=== PATIENT | female | born 1995 | race Caucasian/White ===

== ENCOUNTER 2018-07-22 11:19 | Emergency (ER) | payer OTHER ==
[2018-07-22 11:55] VITALS: BP 111/70; PULSE 80; TEMP 99.2; BMI 28.3
--- NOTE | 2018-07-22 14:16 | PDOC ---
History of Present Illness - General Chief Complaint: Cold Symptoms Stated Complaint: FLU COUGH Time Seen by Provider: 07/22/18 13:52 - History of Present Illness Initial Comments: 07/22/18 14:13 23-year-old female without comorbidities presents for evaluation of cough and intermittent fever 5 days. She also has a lesion on her left third finger she is concerned about Past History - Past Medical History Allergies/Adverse Reactions: Allergies Allergy/AdvReac Type Severity Reaction Status Date / Time No Known Allergies Allergy Verified 07/22/18 11:55 Home Medications: Ambulatory Orders NK [No Known Home Medication] 07/22/18 COPD: No - Surgical History Cholecystectomy: Yes - Suicide/Smoking/Psychosocial Hx Smoking History: Never smoked Review of Systems - Review of Systems Constitutional: Yes: Fever, Malaise Respiratory: Yes: Cough Integumentary: Yes: Lesions *Physical Exam - Vital Signs Last Vital Signs Temp Pulse Resp BP Pulse Ox 99.2 F 80 18 111/70 100 07/22/18 11:53 07/22/18 11:53 07/22/18 11:53 07/22/18 11:53 07/22/18 11:53 - Physical Exam Comments: 07/22/18 14:13 HEAD: NC/AT EYES: Conjuntiva clear Ears: Canals and TM's normal NOSE: No d/c THROAT: Moist mucous membrances, oral pharanx clear, uvula midline NECK: Supple without adenopathy CARDIAC: S1 S2 LUNGS: CTA Full and Equal breath sounds ABDOMEN: Soft NT ND MS: Full ROM in all joints without edema NEUROLOGIC: No gross sensory or motor deficits, NVID SKIN: Normal color and temperature there is a fascicular area on the radial aspect of the left middle finger on the skin overlying the proximal phalanx vesicles are closed there is no indication of secondary infection Medical Decision Making - Medical Decision Making 07/22/18 14:14 Upper respiratory infection with herpetic obed *DC/Admit/Observation/Transfer Diagnosis at time of Disposition: URI (upper respiratory infection), Herpetic obed - Discharge Dispostion Disposition: HOME Condition at time of disposition: Stable Decision to Admit order: No - Referrals Referrals: Davy Kaur [Non Staff, Medical] - - Patient Instructions Printed Discharge Instructions: DI for Viral Upper Respiratory Infection-Child Additional Instructions: Please follow-up with your primary care physician in one to 2 days for further evaluation and treatment options. Upper respiratory infection will resolve on its own should symptoms worsen or go unresolved please follow-up with your primary care doctor or the emergency room if needed the herpetic obed rash on your finger will resolve on its own as well over the next few weeks please keep in mind vesicles or contagious when their opened and the rash can spread to other people. It's important to keep the rash covered should the vesicles open he may use hot and cold compresses as tolerated for symptomatically relief - Post Discharge Activity
== END 2018-07-22 14:18 | disposition home or self-care (01) ==
LOC: JERFT 11:19
DX: J06.9 Acute upper respiratory infection, unspecified (principal); B00.89 Other herpesviral infection
CPT/HCPCS: 99281-25

== ENCOUNTER 2018-11-27 17:12 | Emergency (ER) | payer OTHER ==
[2018-11-27 17:44] VITALS: BP 117/71; PULSE 83; TEMP 98.1; BMI 28.6
--- NOTE | 2018-11-27 18:33 | PDOC ---
History of Present Illness - General Chief Complaint: Weakness Stated Complaint: PERSONAL Time Seen by Provider: 11/27/18 18:11 History Source: Patient Exam Limitations: No Limitations Past History - Past Medical History Allergies/Adverse Reactions: Allergies Allergy/AdvReac Type Severity Reaction Status Date / Time No Known Allergies Allergy Verified 11/27/18 17:40 Home Medications: Ambulatory Orders NK [No Known Home Medication] 11/27/18 COPD: No - Surgical History Cholecystectomy: Yes - Immunization History Immunization Up to Date: Yes - Suicide/Smoking/Psychosocial Hx Smoking History: Never smoked Hx Alcohol Use: No Drug/Substance Use Hx: No *Physical Exam - Vital Signs Last Vital Signs Temp Pulse Resp BP Pulse Ox 98.1 F 83 16 117/71 100 11/27/18 17:40 11/27/18 17:40 11/27/18 17:40 11/27/18 17:40 11/27/18 17:40 - Physical Exam General Appearance: No: Apparent Distress Respiratory/Chest: positive: Lungs Clear, Normal Breath Sounds. negative: Respiratory Distress Cardiovascular: positive: Regular Rhythm, Regular Rate, S1, S2. negative: Murmur Gastrointestinal/Abdominal: positive: Normal Bowel Sounds, Soft. negative: Tender, Distended, Guarding, Rebound Integumentary: positive: Normal Color Neurologic: positive: leather stitcher II-XII NML intact, Fully Oriented, Alert, Normal Mood/ Affect, Motor Strength 5/5 ED Treatment Course - LABORATORY CBC & Chemistry Diagram: 11/27/18 18:27 11/27/18 18:29 Medical Decision Making - Medical Decision Making 23 y/o F hx of anemia presents with intermittent lightheadedness for the past 2 months. States is concerned this is related to her anemia as she felt similarly in the past and was found to be anemic. States she used to take Iron, but stopped taking as her anemia resolved. Has not had a checkup with a PCP for around a year and does not have a PCP currently. States she has heavy menstrual cycles, but is not having one currently. Denies active bleeding right now. Denies fever, sob, cp, abd pain, n/v, syncope. Assess anemia Plan: Labs 11/27/18 18:29 Labs unremarkable Will refer to PCP for follow-up Patient otherwise appears well; stable for dc 11/27/18 19:48 *DC/Admit/Observation/Transfer Diagnosis at time of Disposition: Lightheadedness - Discharge Dispostion Disposition: HOME Condition at time of disposition: Stable Decision to Admit order: No - Referrals Referrals: Aung Weir MD [Staff Physician] - 2 Days - Patient Instructions Additional Instructions: Thank you for choosing [facility]. It was a pleasure taking care of you. Your blood work was unremarkable You were referred to a primary care doctor for further evaluation of your symptoms Return to the Emergency Department if your symptoms worsen or persist or have other concerning symptoms. - Post Discharge Activity
[2018-11-27 19:21] LABS: BASO % 0.3 % (0-2.0); EOS % 2.7 % (0-4.5); HEMATOCRIT 39.6 % (32.4-45.2); HEMOGLOBIN 13.2 GM/dL (10.7-15.3); LYMPH % 35.7 % (8-40); MCH 27.6 pg (25.7-33.7); MCHC 33.4 g/dl (32.0-36.0); MEAN CELL VOLUME 82.6 fl (80-96); MEAN PLT VOLUME 9.6 fl (7.5-11.1); MONO % 9.7 % (3.8-10.2); NEUT % 51.6 % (42.8-82.8); PLATELET COUNT 236 K/MM3 (134-434); RDW 13.9 % (11.6-15.6)
[2018-11-27 19:39] LABS: ANION GAP 7 MMOL/L (8-16); BLOOD UREA NITROGEN 15 mg/dL (7-18); CALCIUM 8.3 mg/dL (8.5-10.1); CHLORIDE 107 mmol/L (98-107); CO2 25 mmol/L (21-32); CREATININE 0.7 mg/dL (0.55-1.3); GLUCOSE,RANDOM 79 mg/dL (74-106); POTASSIUM 4.3 mmol/L (3.5-5.1); SODIUM 139 mmol/L (136-145)
== END 2018-11-27 20:12 | disposition home or self-care (01) ==
LOC: JER 17:12 → JERFT 17:12
DX: R42 Dizziness and giddiness (principal)
CPT/HCPCS: 36415; 80048; 85025; 99281-25

== ENCOUNTER 2018-12-03 23:08 | Emergency (ER) | payer OTHER ==
[2018-12-03 23:17] VITALS: TEMP 98.9; BMI 28.1
[2018-12-04] MEDS ORDERED: AZITHROMYCIN 500 MG TABLET PO ONE (00:09)
[2018-12-04] MEDS ORDERED: AZITHROMYCIN 250 MG TABLET ONE (00:27)
--- NOTE | 2018-12-04 01:45 | PDOC ---
History of Present Illness - General Chief Complaint: Vaginal Sxs Stated Complaint: STD TESTING Time Seen by Provider: 12/03/18 23:36 History Source: Patient Exam Limitations: No Limitations Past History - Past Medical History Allergies/Adverse Reactions: Allergies Allergy/AdvReac Type Severity Reaction Status Date / Time No Known Allergies Allergy Verified 12/03/18 23:17 Home Medications: Ambulatory Orders NK [No Known Home Medication] 11/27/18 COPD: No - Surgical History Cholecystectomy: Yes - Immunization History Immunization Up to Date: Yes - Suicide/Smoking/Psychosocial Hx Smoking History: Never smoked Have you smoked in the past 12 months: No Information on smoking cessation initiated: No Hx Alcohol Use: No Drug/Substance Use Hx: No *Physical Exam - Vital Signs Last Vital Signs Temp Pulse Resp BP Pulse Ox 98.9 F 67 16 115/67 100 12/03/18 23:15 12/03/18 23:15 12/03/18 23:15 12/03/18 23:15 12/03/18 23:15 - Physical Exam General Appearance: No: Apparent Distress Respiratory/Chest: positive: Lungs Clear, Normal Breath Sounds. negative: Respiratory Distress Cardiovascular: positive: Regular Rhythm, Regular Rate, S1, S2. negative: Murmur Gastrointestinal/Abdominal: positive: Normal Bowel Sounds, Soft. negative: Tender, Distended, Guarding, Rebound Neurologic: positive: Alert, Normal Mood/Affect ED Treatment Course - ADDITIONAL ORDERS Additional order review: Laboratory Results 12/04/18 01:00 Urine HCG, Qual Negative - Medications Given in the ED: ED Medications Discontinued Medications Generic Name Dose Route Start Last Admin Trade Name Freq PRN Reason Stop Dose Admin Azithromycin 1,000 mg 12/04/18 00:09 12/04/18 00:30 Zithromax PO 12/04/18 00:10 1,000 mg ONCE ONE Administration Medical Decision Making - Medical Decision Making 23 y/o F hx of anemia presents requesting treatment for chlamydia. Patient's partner was seen in ED last week and had STD workup which came back positive for chlamydia. Partner was already treated, but states they had intercourse yesterday. Denies fever, abd pain, n/v, vaginal discharge/itching, urinary complaints. Does not want to be treated for gonorrhea at this time; only wants chlamydia treatment Plan: Given Azithromycin UCG negative GC culture sent 04/10/19 01:40 *DC/Admit/Observation/Transfer Diagnosis at time of Disposition: STD exposure - Discharge Dispostion Disposition: HOME Decision to Admit order: No - Referrals - Patient Instructions Additional Instructions: Thank you for choosing [facility]. It was a pleasure taking care of you. You were treated for possible exposure to chlamydia You also had labs sent for gonorrhea, which are pending and will be notified of results Refrain from sexual intercourse for 1 week. Return to the Emergency Department if your symptoms worsen or persist or have other concerning symptoms. - Post Discharge Activity
[2018-12-04 01:58] VITALS: BP 118/62; PULSE 68
== END 2018-12-04 01:58 | disposition home or self-care (01) ==
LOC: JER 23:08
DX: Z20.2 Contact with and (suspected) exposure to infections with a predominantly sexual mode of transmission (principal)
CPT/HCPCS: 36415; 84703; 87491; 87591; 99281-25

== ENCOUNTER 2019-02-01 18:06 | Emergency (ER) | payer OTHER | END 2019-02-01 20:57 | disposition home or self-care (01) | LOC: JER 18:06 ==

== ENCOUNTER 2019-02-05 00:54 | Emergency (ER) | payer OTHER ==
--- NOTE | 2019-02-05 02:05 | PDOC ---
History of Present Illness - General Chief Complaint: Pain, Acute Stated Complaint: LOWER ABDOMINAL PAIN Time Seen by Provider: 02/05/19 01:43 - History of Present Illness Initial Comments: 02/05/19 02:04 The patient is a 23 year old female with a PMH of recent liposuction and breast augmentation who presents to the ED c/o vaginal discharge. No fever/chills, Past History - Past Medical History Allergies/Adverse Reactions: Allergies Allergy/AdvReac Type Severity Reaction Status Date / Time No Known Allergies Allergy Verified 02/05/19 02:03 Home Medications: Ambulatory Orders NK [No Known Home Medication] 11/27/18 COPD: No - Surgical History Cholecystectomy: Yes - Immunization History Immunization Up to Date: Yes - Suicide/Smoking/Psychosocial Hx Smoking History: Current every day smoker Have you smoked in the past 12 months: Yes Information on smoking cessation initiated: No Hx Alcohol Use: Yes (Social) Drug/Substance Use Hx: No Review of Systems - Review of Systems Constitutional: No: Chills, Fever Respiratory: No: Cough, Shortness of Breath Cardiac (ROS): No: Chest Pain, Lightheadedness, Palpitations, Syncope ABD/GI: No: Constipated, Diarrhea, Nausea, Vomiting : Yes: Discharge. No: Burning, Dysuria *Physical Exam - Vital Signs Last Vital Signs Temp Pulse Resp BP Pulse Ox 98.3 F 81 16 108/63 99 02/05/19 00:54 02/05/19 00:54 02/05/19 00:54 02/05/19 00:54 02/05/19 00:54 - Physical Exam General Appearance: Yes: Nourished, Appropriately Dressed HEENT: positive: Normal Voice, Hearing Grossly Normal Neck: positive: Trachea midline, Supple Respiratory/Chest: positive: Lungs Clear, Normal Breath Sounds Cardiovascular: positive: S1, S2 Vascular Pulses: Dorsalis-Pedis (R): 2+, Doralis-Pedis (L): 2+ Female Pelvic Exam: positive: cervical os closed, discharge. negative: vaginal bleeding *DC/Admit/Observation/Transfer Diagnosis at time of Disposition: Vaginal discharge - Discharge Dispostion Condition at time of disposition: Fair - Referrals Schedule a call back: culture results - Patient Instructions Printed Discharge Instructions: DI for Vaginal Discharge Additional Instructions: Both urine and vaginal cultures have been sent. If there is a necessary change in your treatment plan you will be contacted. Otherwise follow-up with your OB/ PRACTICE MANAGEMENT CONSULTANT - Post Discharge Activity
[2019-02-05] MEDS ORDERED: FLUCONAZOLE 100 MG TABLET (UD) PO ONE (02:06)
[2019-02-05] MEDS ORDERED: AZITHROMYCIN 500 MG TABLET PO ONE (02:06)
[2019-02-05] MEDS ORDERED: AZITHROMYCIN 250 MG TABLET ONE (02:21)
[2019-02-05] MEDS ORDERED: FLUCONAZOLE 100 MG TABLET (UD) ONE (02:21)
[2019-02-05 02:35] VITALS: BMI 31.9
--- NOTE | 2019-02-05 02:36 | PDOC ---
Documentation entered by Barbara Park SCRIBE, acting as scribe for Lety Bowles DO. Lety Bowles DO: This documentation has been prepared by the Xavier campos Adrianna, SCRIBE, under my direction and personally reviewed by me in its entirety. I confirm that the documentation accurately reflects all work, treatment, procedures, and medical decision making performed by me. Attending Attestation - Resident Resident Name: MilliAlyssa - ED Attending Attestation I have performed the following: I have examined & evaluated the patient, The case was reviewed & discussed with the resident, I agree w/resident's findings & plan - HPI HPI: The patient is a 23 year old female, with a significant PMH of recent breast augmentation and liposuction (3 weeks ago in the [place]), who presents to the emergency department today complaining of vaginal discharge for one day. Patient endorses thick, vaginal discharge that she describes as cottage cheese. She reports associated itching, which developed after having intercourse with her boyfriend (who is also in the ED for similar symptoms). The patient denies chest pain, shortness of breath, headache and dizziness. Denies fever, chills, nausea, vomit, diarrhea and constipation. Denies dysuria, frequency, urgency and hematuria. Allergies: NKA Past surgical history: Breast augmentation and liposuction Social history: Currently sexually active with one partner 02/05/19 02:28 - Physicial Exam PE: Agree with resident exam. 02/05/19 02:28 - Medical Decision Making 02/05/19 02:35 23-year-old female with vaginal discharge here with her partner for treatment Ceftriaxone 250 mg IM as well as azithromycin 1 g by mouth and Diflucan 150 mg by mouth Patient's partner treated as well
[2019-02-05 02:50] LABS: EPI CELLS 13.2 /HPF (0-5/HPF); HCG,QUALITATIVE URINE Negative; HYALINE CASTS 16 /lpf (0-8); PH,URINE 8.5 (5.0-8.0); URINE APPEARANCE CLOUDY; URINE BILIRUBIN NEGATIVE (NEGATIVE); URINE COLOR YELLOW; URINE GLUCOSE (UA) NEGATIVE (NEGATIVE); URINE KETONE NEGATIVE (NEGATIVE); URINE LEUK ESTERASE 2+ (NEGATIVE); URINE NITRITE NEGATIVE (NEGATIVE); URINE PROTEIN 1+ (NEGATIVE); URINE RBC 2 /hpf (0-4); URINE WBC 24 /hpf (0-5)
[2019-02-05 03:23] VITALS: BP 112/74; PULSE 84; TEMP 98.6
== END 2019-02-05 03:27 | disposition home or self-care (01) ==
LOC: JER 00:54
DX: N89.8 Other specified noninflammatory disorders of vagina (principal); F17.210 Nicotine dependence, cigarettes, uncomplicated
CPT/HCPCS: 36415; 81003; 84703; 87491; 87591; 96372; 99282-25

== ENCOUNTER 2019-03-13 12:06 | Emergency (ER) | payer SELFPAY ==
[2019-03-13 12:11] VITALS: BP 121/71; PULSE 71; TEMP 98.1; BMI 31.6
[2019-03-13] MEDS ORDERED: BACITRACIN 15 GM TUBE TOPICAL OINTMENT ONE (12:35)
--- NOTE | 2019-03-13 12:37 | PDOC ---
Suture Removal/Wound Check HPI - History of Present Illness Chief Complaint: Suture/Staple Removal (other) Stated Complaint: STICHES REMOVAL Time Seen by Provider: 03/13/19 12:08 History Source: Yes: Patient Exam Limitations: Yes: No Limitations Treated at: Other ED ([facility]) Past History - Past Medical History Allergies/Adverse Reactions: Allergies Allergy/AdvReac Type Severity Reaction Status Date / Time No Known Allergies Allergy Verified 03/13/19 12:11 Home Medications: Ambulatory Orders NK [No Known Home Medication] 11/27/18 COPD: No - Surgical History Cholecystectomy: Yes - Immunization History Immunization Up to Date: Yes - Suicide/Smoking/Psychosocial Hx Smoking History: Never smoked Have you smoked in the past 12 months: Yes Information on smoking cessation initiated: No Hx Alcohol Use: No Drug/Substance Use Hx: No Suture Removal/Wound Check PE - Physical Exam Laceration/Wound Check Symptoms: reports: None. denies: Fever, Chills, Redness , Discharge, Bleeding Current Severity Level: None Location of Laceration/Wound: bilateral: Abdomen (belly button) *Review of Systems - Review of Systems Able to Perform ROS?: Yes Constitutional: No: Fever, Malaise, Weakness HEENTM: No: Symptoms Reported Respiratory: No: Symptoms reported Cardiac (ROS): No: Symptoms Reported ABD/GI: No: Symptoms Reported Musculoskeletal: Yes: Symptoms Reported, See HPI. No: Muscle Pain (suture to belly button) All Other Systems: Reviewed and Negative *Physical Exam - Vital Signs Last Vital Signs Temp Pulse Resp BP Pulse Ox 98.1 F 71 18 121/71 99 03/13/19 12:08 03/13/19 12:08 03/13/19 12:08 03/13/19 12:08 03/13/19 12:08 - Physical Exam General Appearance: Yes: Nourished, Appropriately Dressed. No: Apparent Distress HEENT: positive: Normal ENT Inspection Neck: positive: Supple Respiratory/Chest: negative: Respiratory Distress, Accessory Muscle Use Musculoskeletal: positive: Normal Inspection Extremity: positive: Normal Capillary Refill, Normal Inspection Integumentary: positive: Normal Color, Other ( single suture to umbilical. no skin erythema. no wound dehiscense. no evidence of wound infection). negative: Erythema, Swelling, Ecchymosis Neurologic: positive: Fully Oriented, Alert, Normal Response Medical Decision Making - Medical Decision Making 03/13/19 12:43 Patient with no medical history present for suture removal status post having laparoscopic liposuction [address] an umbilical left in as she thought suture will dissolve. Denies redness, pain or discharge from umbilicus. Patient has surgical procedure done in the [facility] [place] 3 months ago. Denies any other symptoms. Exam significant for 1 single suture removal umbilicus which was removed with suture removal kit without complication. Bacitracin apply to wound. No open wound or evidence of wound infection.Erythema to skin. Patient is able for discharge *DC/Admit/Observation/Transfer Diagnosis at time of Disposition: Encounter for removal of sutures - Discharge Dispostion Disposition: HOME Condition at time of disposition: Stable Decision to Admit order: No - Referrals - Patient Instructions Printed Discharge Instructions: DI for Suture Removal Additional Instructions: Keep putting bacitracin to wound twice a day as needed. Follow-up with PCP as needed - Post Discharge Activity
== END 2019-03-13 12:40 | disposition home or self-care (01) ==
LOC: JERFT 12:06
DX: Z48.817 Encounter for surgical aftercare following surgery on the skin and subcutaneous tissue (principal); Z48.02 Encounter for removal of sutures
CPT/HCPCS: 99281-25

== ENCOUNTER 2020-04-06 20:10 | Emergency (ER) | payer OTHER ==
--- NOTE | 2020-04-06 20:15 | PDOC ---
Rapid Medical Evaluation Time Seen by Provider: 04/06/20 20:12 Medical Evaluation: Allergies Allergy/AdvReac Type Severity Reaction Status Date / Time No Known Allergies Allergy Verified 03/13/19 12:11 04/06/20 20:12 I have performed a brief in-person evaluation of this patient. CC: PVB- 8weeks ; LMP- 01/21 PE: deferred Orders: labs, urine, TVUS Patient will proceed to ED for further evaluation. Discharge Disposition - Diagnosis Vaginal discharge - Referrals - Patient Instructions - Post Discharge Activity
[2020-04-06 20:18] VITALS: BP 110/63; PULSE 83; TEMP 98.9; BMI 31.6
[2020-04-06 21:22] LABS: BASO % 0.4 % (0-2.0); EOS % 1.7 % (0-4.5); HEMATOCRIT 36.2 % (32.4-45.2); HEMOGLOBIN 12.1 GM/dL (10.7-15.3); LYMPH % 33.1 % (8-40); MCH 28.2 pg (25.7-33.7); MCHC 33.5 g/dl (32.0-36.0); MEAN CELL VOLUME 84.2 fl (80-96); MEAN PLT VOLUME 8.9 fl (7.5-11.1); MONO % 8.2 % (3.8-10.2); NEUT % 56.6 % (42.8-82.8); PLATELET COUNT 219 K/MM3 (134-434); WHITE BLOOD COUNT 5.2 K/mm3 (4.0-10.0)
--- NOTE | 2020-04-06 21:48 | PDOC ---
Attending Attestation - Resident Resident Name: Edward Chu - ED Attending Attestation I have performed the following: I have examined & evaluated the patient, The case was reviewed & discussed with the resident, I agree w/resident's findings & plan - HPI HPI: 04/06/20 22:23 see resident hpi - Physicial Exam PE: 04/06/20 22:23 see resident exam - Medical Decision Making 04/06/20 22:24 25-year-old female currently with unknown gestational age complaining of clear liquid discharge Ultrasound shows a live approximate 9 to 10-week IUP with small subchorionic hemorrhage Urinalysis suggest urinary tract infection Patient does have an [employer] in [place] with whom she will follow Discharge - Discharge Information Problems reviewed: Yes Clinical Impression/Diagnosis: Vaginal discharge, UTI (urinary tract infection) Subchorionic hematoma Qualifiers: Fetus number: single or unspecified fetus Trimester: unspecified trimester Qualified Code(s): O41.8X90 - Other specified disorders of amniotic fluid and membranes, unspecified trimester, not applicable or unspecified Condition: Stable Disposition: HOME - Follow up/Referral - Patient Discharge Instructions Patient Printed Discharge Instructions: DI for -- Discomforts and Remedies - Post Discharge Activity Work/Back to School Note: Back to Work
[2020-04-06 21:53] LABS: BLOOD UREA NITROGEN 10.8 mg/dL (7-18); CALCIUM 8.8 mg/dL (8.5-10.1); CREATININE 0.6 mg/dL (0.55-1.3); POTASSIUM 4.2 mmol/L (3.5-5.1)
--- NOTE | 2020-04-06 21:54 | PDOC ---
History of Present Illness - General Chief Complaint: Vaginal Bleeding Stated Complaint: 8 WEEK PREG/VAGINAL BLEEDING Time Seen by Provider: 04/06/20 20:12 - History of Present Illness Initial Comments: 04/06/20 21:49 25 F with no PMH (?) 8 weeks presented to the ED with concern of vaginal gushing fluid. It happened acutely this afternoon around 5pm. She noticed gushing non-painful white clear fluid. She denies hematuria, increased frequency, white discharge. She endorses nausea, denies chest pain, abdominal pa in, vomiting, vaginal bleeding. Her week was unclear. Patient stated uncertain LMP, but around 01/21. Patient has an OBGYN at [facility] named, Peter Zazueta. Last visit was 2 weeks ago. Never had a proper ultrasound yet. She also endorses 2 weeks of running diarrhea, denies blood in stool. PMHX: none PSHX: liposuction, cholecystectomy Meds:none Allergies: none Tob: none Etoh: none Rec drugs: none PCP: none OBGYN: Peter Zazueta ROS GENERAL/CONSTITUTIONAL: No fever or chills. No weakness. HEAD, EYES, EARS, NOSE AND THROAT: No change in vision. No ear pain or discharge. No sore throat. CARDIOVASCULAR: No chest pain or shortness of breath RESPIRATORY: No cough, wheezing, or hemoptysis. GASTROINTESTINAL: +nausea, no vomiting, +diarrhea , no constipation. GENITOURINARY: No dysuria, frequency, or change in urination. MUSCULOSKELETAL: No joint or muscle swelling or pain. No neck or back pain. SKIN: No rash NEUROLOGIC: No headache, vertigo, loss of consciousness, or change in s trength/sensation. ENDOCRINE: No increased thirst. No abnormal weight change HEMATOLOGIC/LYMPHATIC: No anemia, easy bleeding, or history of blood clots. ALLERGIC/IMMUNOLOGIC: No hives or skin allergy. PE GENERAL: Awake, alert, and fully oriented, in no acute distress HEAD: No signs of trauma, normocephalic, atraumatic EYES: PERRLA, EOMI, sclera anicteric, conjunctiva clear ENT: Auricles normal inspection, hearing grossly normal, nares patent, oropharynx clear without exudates. Moist mucosa NECK: Normal ROM, supple, no lymphadenopathy, JVD, or masses LUNGS: No distress, speaks full sentences, clear to auscultation bilaterally HEART: Regular rate and rhythm, normal S1 and S2, no murmurs, rubs or gallops, peripheral pulses normal and equal bilaterally. ABDOMEN: Soft, nontender, normoactive bowel sounds. No guarding, no rebound. No masses EXTREMITIES : Normal inspection, Normal range of motion, no edema. No clubbing or cyanosis. NEUROLOGICAL: Cranial nerves II through XII grossly intact. Normal speech, normal gait, no focal sensorimotor deficits SKIN: Warm, Dry, normal turgor, no rashes or lesions noted Past History - Medical History Allergies/Adverse Reactions: Allergies Allergy/AdvReac Type Severity Reaction Status Date / Time No Known Allergies Allergy Verified 04/06/20 20:18 Home Medications: Ambulatory Orders Cephalexin Monohydrate [Keflex -] 500 mg PO BID 7 Days #14 capsule 04/06/20 COPD: No - Surgical History Cholecystectomy: Yes - Reproductive History Is Patient Now?: Yes - Immunization History Immunization Up to Date: Yes - Psycho-Social/Smoking History Smoking History: Never smoked Have you smoked in the past 12 months: Yes - Substance Abuse Hx (Audit-C & DAST Scrn) How often the patient has a drink containing alcohol: Never Score: In Men: 4 or > Positive; In Women: 3 or > Positive: 0 Screen Result (Pos requires Nsg. Audit-10AR): Negative In the last yr the pt used illegal drug/Rx for NonMed reason: No Score: Yes response is considered Positive: 0 Screen Result (Positive result requires Nsg. DAST-10): Negative *Physical Exam - Vital Signs Last Vital Signs Temp Pulse Resp BP Pulse Ox 98.9 F 83 18 110/63 100 04/06/20 20:14 04/06/20 20:14 04/06/20 20:14 04/06/20 20:14 04/06/20 20:14 ED Treatment Course - LABORATORY CBC & Chemistry Diagram: 04/06/20 20:50 04/06/20 20:50 - ADDITIONAL ORDERS Additional order review: 04/06/20 20:50 RBC 4.30 MCV 84.2 MCHC 33.5 RDW 13.0 MPV 8.9 Neutrophils % 56.6 Lymphocytes % 33.1 Monocytes % 8.2 Eosinophils % 1.7 Basophils % 0.4 Medical Decision Making - Medical Decision Making 04/06/20 21:54 25 F with no PMH , , uncertain 8 weeks , presented to the ED with concern of gushing clear painless fluid from vagina. Concerning for miscarriage. Ultrasound UA/UC, Bloodwork. 04/06/20 21:56 Transabdominal US revealed , single lived uterine fetus , 9 weeks 5 days. Has cardiac activities. Small subchorionic hemorrhage presented. Simple cyst of the left/right ovary. No free fluid in culdesac. Discharge - Discharge Information Problems reviewed: Yes Clinical Impression/Diagnosis: Subchorionic hematoma Qualifiers: Fetus number: single or unspecified fetus Trimester: unspecified trimester Qualified Code(s): O41.8X90 - Other specified disorders of amniotic fluid and membranes, unspecified trimester, not applicable or unspecified; O46.8X9 - Other antepartum hemorrhage, unspecified trimester UTI in Qualifiers: Trimester: unspecified trimester Qualified Code(s): O23.40 - Unspecified infection of urinary tract in , unspecified trimester Condition: Stable Disposition: HOME - Additional Discharge Information Prescriptions: Cephalexin Monohydrate [Keflex -] 500 mg PO BID 7 Days #14 capsule - Follow up/Referral - Patient Discharge Instructions Patient Printed Discharge Instructions: DI for Urinary Tract Infection (UTI), DI for -- Discomforts and Remedies Additional Instructions: Follow up with your OBGYN within 3 days regarding your ER visit. Your care is not complete until you follow up. You have a urinary tract infection. I have prescribed you an antibiotic. Take as advised on label. Return to the ER for increasing pain, chest pain, shortness of breath, vaginal bleeding, or any other new, worsening or concerning symptoms. - Post Discharge Activity Work/Back to School Note: Back to Work
--- NOTE | 2020-04-06 22:06 | PDOC ---
*Physical Exam - Vital Signs Last Vital Signs Temp Pulse Resp BP Pulse Ox 98.9 F 83 18 110/63 100 04/06/20 20:14 04/06/20 20:14 04/06/20 20:14 04/06/20 20:14 04/06/20 20:14 ED Treatment Course - LABORATORY CBC & Chemistry Diagram: 04/06/20 20:50 08 20:50 Medical Decision Making - Medical Decision Making CBC WBC 5.2 K/mm3 (4.0-10.0) 04/06/20 20:50 RBC 4.30 M/mm3 (3.60-5.2) 04/06/20 20:50 Hgb 12.1 GM/dL (10.7-15.3) 04/06/20 20:50 Hct 36.2 % (32.4-45.2) 04/06/20 20:50 MCV 84.2 fl (80-96) 04/06/20 20:50 MCH 28.2 pg (25.7-33.7) 04/06/20 20:50 MCHC 33.5 g/dl (32.0-36.0) 04/06/20 20:50 RDW 13.0 % (11.6-15.6) 04/06/20 20:50 Plt Count 219 K/MM3 (134-434) 04/06/20 20:50 MPV 8.9 fl (7.5-11.1) 04/06/20 20:50 Absolute Neuts (auto) 3.0 K/mm3 (1.5-8.0) 04/06/20 20:50 Neutrophils % 56.6 % (42.8-82.8) 04/06/20 20:50 Lymphocytes % 33.1 % (8-40) 04/06/20 20:50 Monocytes % 8.2 % (3.8-10.2) 04/06/20 20:50 Eosinophils % 1.7 % (0-4.5) 04/06/20 20:50 Basophils % 0.4 % (0-2.0) 04/06/20 20:50 Nucleated RBC % 0 % (0-0) 04/06/20 20:50 CMP Sodium 139 mmol/L (136-145) 04/06/20 20:50 Potassium 4.2 mmol/L (3.5-5.1) 04/06/20 20:50 Chloride 107 mmol/L (98-107) 04/06/20 20:50 Carbon Dioxide 22 mmol/L (21-32) 04/06/20 20:50 Anion Gap 10 MMOL/L (8-16) 04/06/20 20:50 BUN 10.8 mg/dL (7-18) 04/06/20 20:50 Creatinine 0.6 mg/dL (0.55-1.3) 04/06/20 20:50 Est GFR (CKD-EPI)AfAm 147.86 04/06/20 20:50 Est GFR (CKD-EPI)NonAf 127.58 04/06/20 20:50 Random Glucose 82 mg/dL (74-106) 04/06/20 20:50 Calcium 8.8 mg/dL (8.5-10.1) 04/06/20 20:50 Beta HCG, Quant 66105.0 mIU/ml 04/06/20 20:50 Blood Type, Rh (Baby) Blood Type O POSITIVE 04/06/20 20:50 Urine Test Results Urine Color Yellow 04/06/20 21:30 Urine Appearance Clear 04/06/20 21:30 Urine pH 6.5 (5.0-8.0) D 04/06/20 21:30 Ur Specific [place] 1.030 (1.010-1.035) 04/06/20 21:30 Urine Protein Negative (NEGATIVE) 04/06/20 21:30 Urine Glucose (UA) Negative (NEGATIVE) 04/06/20 21:30 Urine Ketones Trace (NEGATIVE) H 04/06/20 21:30 Urine Blood Negative (NEGATIVE) 04/06/20 21:30 Urine Nitrite Negative (NEGATIVE) 04/06/20 21:30 Urine Bilirubin Negative (NEGATIVE) 04/06/20 21:30 Ur Leukocyte Esterase Trace (NEGATIVE) 04/06/20 21:30 UTI in . First dose Kelfex 500 mg given. Prescription given. No indication for Rhogam. Pt has OBGYN F/U. Advised to F/U promptly. Pt discharged. Discharge - Discharge Information Problems reviewed: Yes Clinical Impression/Diagnosis: UTI in Subchorionic hematoma Qualifiers: Fetus number: single or unspecified fetus Trimester: unspecified trimester Qualified Code(s): O41.8X90 - Other specified disorders of amniotic fluid and membranes, unspecified trimester, not applicable or unspecified Condition: Stable Disposition: HOME - Admission No - Additional Discharge Information Prescriptions: Cephalexin Monohydrate [Keflex -] 500 mg PO BID 7 Days #14 capsule - Follow up/Referral - Patient Discharge Instructions Patient Printed Discharge Instructions: DI for Urinary Tract Infection (UTI), DI for -- Discomforts and Remedies Additional Instructions: Follow up with your OBGYN within 3 days regarding your ER visit. Your care is not complete until you follow up. You have a urinary tract infection. I have prescribed you an antibiotic. Take as advised on label. Return to the ER for increasing pain, chest pain, shortness of breath, vaginal bleeding, or any other new, worsening or concerning symptoms. - Post Discharge Activity Work/Back to School Note: Back to Work
[2020-04-06 22:09] LABS: EPI CELLS >36 /uL (0-25.1); HYALINE CASTS 5 /uL (0-3.1); PH,URINE 6.5 (5.0-8.0); URINE APPEARANCE CLEAR; URINE BACTERIA 1915 /uL (0-1359); URINE BILIRUBIN NEGATIVE (NEGATIVE); URINE COLOR YELLOW; URINE GLUCOSE (UA) NEGATIVE (NEGATIVE); URINE KETONE TRACE (NEGATIVE); URINE LEUK ESTERASE TRACE (NEGATIVE); URINE NITRITE NEGATIVE (NEGATIVE); URINE PROTEIN NEGATIVE (NEGATIVE); URINE RBC 8 /uL (0-23.9); URINE WBC 36 /uL (0-25.8)
[2020-04-06] MEDS ORDERED: CEPHALEXIN MONOHYDRATE 500 MG CAPSULE (UD) PO ONE (22:28)
[2020-04-06] MEDS ORDERED: CEPHALEXIN MONOHYDRATE 500 MG CAPSULE (UD) ONE (22:33)
== END 2020-04-06 23:01 | disposition home or self-care (01) ==
LOC: JER 20:10
DX: O41.8X11 Other specified disorders of amniotic fluid and membranes, first trimester, fetus 1 (principal); O46.8X1 Other antepartum hemorrhage, first trimester; O23.41 Unspecified infection of urinary tract in pregnancy, first trimester
CPT/HCPCS: 36415; 76801-TC; 80048; 81003; 84702; 85025; 86850; 86900; 86901; 87086; 99284-25